=== PATIENT | male | born 1975 | race Caucasian/White ===

== ENCOUNTER 2025-03-13 08:15 | Emergency (ER) | payer SELFPAY ==
--- OUTSIDE RECORDS SUMMARY | 2025-03-13 08:26 | XMS_ITS | Clinical Summary ---
Author Organization [facility] Address [address] [place] [id number] Care Team Providers Care Merchandise Support Associate Name Role Phone Jc Monique MD Primary Care Provider Active Problems Problem Noted Date Diagnosed Date Tear of medial meniscus of l eft knee, unspecified tear type, unspecified whether old or current tear, initial encounter 11/20/2020 Left knee pain, unspecified chronicity Social History Tobacco Use Types Packs/Day Years Used Date Smoking Tobacco: Never Assessed Sex and Gender Information Value Date Recorded Sex Assigned at Not on file Legal Sex Male 9:00 PM CDT Gender Identity Not on file Sexual Orientation Not on file Last Filed Vital Signs Vital Sign Reading Time Taken Comments Blood Pressure 118/78 12/18/2014 9:29 AM CDT Pulse 64 12/18/2014 9:29 AM CDT Temperature - - Respiratory Rate - - Oxygen Saturation - - Inhaled Oxygen Concentration - - Weight 78 kg (172 lb) 12/18/2014 9:29 AM CDT Height 180.3 cm (5' 11) 12/18/2014 9:29 AM CDT Body Mass Index 23.99 12/18/2014 9:29 AM CDT Plan of Treatment Health Maintenance Due Date Last Done Comments Colorectal Cancer Screening Colonoscopy (10 Years) 1977 Annual Physical 1980 Hepatitis C 12/05/1995 DTaP, Tdap and Td Vaccines ( 1 - Tdap) 1996 Hepatitis B Vaccines (1 of 3 - 19+ 3-dose series) 1996 COVID-19 Vaccine (2023-2 5 season) 2025 Influenza Adult (#1) 2025 Meningococcal B Vaccine Aged Out No l onger eligible based on patient's age to complete this topic Meningococcal Vaccine Aged Out No vero aicha eligible based on patient's age to complete this topic Pneumococcal Vaccine: Pediat rics (0 to 5 Years) and At-Risk Patients (6 to 49 Years) Aged Out No longer eligible b ased on patient's age to complete this topic RSV Immunizations Under 20 Months Aged Out No longer eligible based on patient's age to complete this topic Care Teams Merchandise Support Associate Relationship Specialty Start Date End Date Jc Monique MD [address] [place] [address] PCP - General FAMILY PRACTICE 08/25/20
[2025-03-13 08:27] VITALS: BP 149/75; PULSE 53; RESP 18; TEMP 36.4; O2SAT 100
--- NOTE | 2025-03-13 08:28 | ED.CHESTPAIN ---
HPI - Chest Pain General Chief Complaint: Chest Pain Stated Complaint: Chest Pain Time Seen by Provider: 03/13/25 08:50 Mode of arrival: ambulatory Limitations: no limitations History of Present Illness HPI narrative: 49-year-old male presents concern for intermittent chest pain for about 3 weeks. He reports that happens lot morning and has not worked. He reports that he has chest pain he has bilateral arm and hand tingling and ringing in his ears. Reports he also feels clammy. He denies back pain or nausea. He denies any cardiac history, reports cardiac history on his father's side. He does not relate the pain to any specific movement, does not know any exacerbating or relieving factors. He denies shortness of breath with pain MD complaint: chest pain Related Data Home Medications ?Medication ?Instructions ?Recorded ?Confirmed ?Last Taken ?Type No Home Medications 03/13/25 03/13/25 Unknown History Allergies Allergy/AdvReac Type Severity Reaction Status Date / Time No Known Allergies Allergy Verified 03/13/25 08:31 Review of Systems Review of Systems: CONSTITUTIONAL: Denies malaise, chills, sweats, or fever. Reports feeling clammy during episodes of chest pain CARDIOVASCULAR: Reports midsternal chest pain RESPIRATORY: Denies cough or dyspnea. GASTROINTESTINAL: Denies abdominal pain, nausea, vomiting, MUSCULOSKELETAL: Reports bilateral arm tingling while having chest pain NEUROLOGIC: Denies numbness, weakness PSYCHIATRIC: Denies anxiety All systems reviewed & are unremarkable except as noted in HPI and below PMFSH Comments At time of signature, agree with nursing past medical, surgical, social and family history. There is no relevant family history pertinent to the presenting complaint Exam Narrative: GENERAL: Well-appearing, well-nourished, and in no acute distress. HEAD: Normocephalic, atraumatic. EYES: PERRLA, sclera clear ENT: Nares clear. Mucous membranes moist. NECK: Supple. No lymphadenopathy. No jugular venous distension, thyromegaly, or carotid bruits. Carotids were easily palpable bilaterally. CHEST: No respiratory distress. Speaks in full sentences. HEART: Slow rate and rhythm. No murmur heard. Normal peripheral pulses. EXTREMITIES: Normal range of motion. No edema. Normal strength and sensation. SKIN: Warm, dry, no visible rash. NEURO: Alert and oriented x3. PSYCH: Normal mood and affect Course Course Emergency Course: Patient is aware of, understands and agrees to. Patient agrees to proceed directly to the emergency department. Portions of this record may have been created with voice recognition software Level of Care: Express Care Visit Vital Signs Vital signs: Reviewed. Transfer Transfered to: [facility] Transportation: Other (private medication) Transfer rationale: Chest pain Accepting physician: Sneha Krishnamurthy comments: Patient offered EMS transfer, refused. Aspirin given before departure. MDM - Chest Pain MDM Narrative Medical decision making narrative: I evaluated this patient in the express care. History is obtained from patient who is an independent historian and physical exam was performed.? Available medical records were reviewed. ? Exam findings and relevant testing show no acute concerns or changes; patient is non-toxic appearing and is in no distress. ? Critical Care Time Critical Care Time Critical Care Time: No Discharge Plan Discharge Clinical Impression: Chest pain Patient Disposition: Acute Care Hospital Condition: Stable Patient Language: Syriac Prescriptions: No Action No Home Medications Follow-up/Referrals: UNKNOWN,DOCTOR [Primary Care Provider] Time of Disposition: 09:04
--- NOTE | 2025-03-13 08:31 | ECG_ITS ---
Test Date: 2025-03-13 08:41:39 Measurements Intervals [place] Rate: 50 P: 59 IN: 153 QRS: 96 QRSD: 90 T: 83 QT: 441 QTc: 405 Interpretive Statements SINUS BRADYCARDIA RIGHT AXIS DEVIATION DELAYED PRECORDIAL R/S TRANSITION BASELINE ARTIFACT- I, II, AVR BORDERLINE ECG No previous ECG available for comparison Electronically Signed On 03-13-2025 10:00:53 CDT by Emre Wilcox D.O.
== END 2025-03-13 09:07 | disposition short-term general hospital (02) ==
PROVIDERS: Emergency Provider Nurse Practitioner
DX: R07.9 Chest pain, unspecified (principal)
CPT/HCPCS: 93005; 99203; G0463